=== PATIENT | female | born 1990 | race African-American/Black ===

== ENCOUNTER 2024-12-20 08:49 | Emergency (ER) | payer MEDICAID ==
[~2024-12-20] VITALS: Ht 162.6 cm; Wt 70.0 kg
[2024-12-20 08:51] VITALS: O2SAT 98
[2024-12-20] MEDS: SODIUM CHLORIDE 0.9% (SEPSIS BOLUS) IV ONE (09:24)
[2024-12-20] MEDS: KETOROLAC 30MG/ML VIAL IV ONE (09:26)
[2024-12-20] MEDS: ONDANSETRON HCL 4MG/2ML INJ IV ONE (09:27)
[2024-12-20 09:32] LABS: BASOPHILS % 1.3 % (0.0-2.0); EOSINOPHILS % 5.9 % (0.0-5.0); HEMATOCRIT. 35.8 % (36.0-48.0); HEMOGLOBIN. 11.7 g/dL (12.0-16.0); LYMPHOCYTES % 23.9 % (20.0-50.0); MEAN CORPUSCULAR HEMOGLOBIN 29.5 pg (28.0-32.0); MEAN CORPUSCULAR HGB CONC 32.7 g/dL (31.0-37.0); MEAN CORPUSCULAR VOLUME 90.1 fL (81.0-99.0); MEAN PLATELET VOLUME 7.7 fl (7.4-10.4); MONOCYTES % 4.3 % (2.0-8.0); NEUTROPHILS % 64.6 % (40.0-76.0); PLATELET 421 x1000/uL (130-400); RED BLOOD CELL COUNT 3.98 mill/uL (4.2-5.4); RED CELL DISTRIBUTION WIDTH 13.7 % (11.6-14.6); WHITE BLOOD COUNT 8.1 x1000/uL (4.5-11.0)
[2024-12-20 09:33] LABS: CHLORIDE 106 mEq/L (98-107); POTASSIUM 3.5 mEq/L (3.5-5.1); SODIUM 140 mEq/L (136-145)
[2024-12-20 09:34] LABS: CARBON DIOXIDE 25 mEq/L (21-32)
[2024-12-20 09:39] LABS: CREATININE 0.8 mg/dL (0.6-1.0); GLUCOSE 179 mg/dL (70-105)
[2024-12-20 09:40] LABS: PROTHROMBIN TIME 10.6 sec (9.6-11.0)
[2024-12-20 09:40] LABS: UREA NITROGEN BLOOD 19 mg/dL (9-23)
[2024-12-20 09:41] LABS: ALANINE AMINOTRANSFERASE 29 IU/L (10-49); ASPARTATE AMINOTRANSFERASE 36 IU/L (<34)
[2024-12-20 09:42] LABS: BILIRUBIN DIRECT 0.1 mg/dL (<=3.0); BILIRUBIN TOTAL 0.5 mg/dL (0.1-1.0); PROTEIN TOTAL 7.3 g/dL (6.0-8.3)
[2024-12-20 09:57] LABS: TROPONIN I HIGH SENSITIVITY < 4 ng/L (3.0-34)
[2024-12-20] MEDS: MORPHINE SULFATE 4 MG/ML INJ (FOR IV/IM USE) IV ONE (11:10)
[2024-12-20] MEDS ORDERED: ONDA4TAB50 PO (13:17)
[2024-12-20] MEDS ORDERED: TOPUD PO (13:17)
[2024-12-20 13:54] VITALS: BP 106/64; PULSE 61; RESP 14; TEMP 36.6; O2SAT 100
== END 2024-12-20 13:58 | disposition home or self-care (01) ==
LOC: ER 08:49 → EDBEDREQ 11:07 → EDBEDREQTM 11:07 → EDBEDREQSVC 11:07 → ER 13:58
DX: R10.13 Epigastric pain (principal); I95.9 Hypotension, unspecified; Z88.0 Allergy status to penicillin
CPT/HCPCS: 99285; 74176; 96374; 96375; 71045; 96361; 80076; 80048; 81025; 83605; 85025; 85610; 87040; 84484; 36415; 84145; 93005; J1885; J2405; J2270; J7030